=== PATIENT | female | born 1935 | race Two or more races ===

== ENCOUNTER 2016-08-14 07:08 | Day surgery (SDC) | payer MEDICARE, OTHER ==
--- NOTE | 2016-08-08 10:01 | HISTORY AND PHYSICAL E ---
History and Physical NAME: ELFEGO OSUNA : 1935 AGE: 80Y ADMITTED: 08/14/2016 ROOM: CHIEF COMPLAINT: Dysphagia. The patient is known to me. I saw her a year ago on 08/22/2015 where she did have history of cystic benign lesion in her duodenum. She did have MRCP shows no stone. Now she presented with dysphagia. PAST SURGICAL HISTORY: 1. Cholecystectomy. 2. Hysterectomy. 3. Appendectomy. SOCIAL HISTORY: She lives in [place], now she is back in [facility]. REVIEW OF SYSTEMS: CARDIAC: Negative. RESPIRATORY: Negative. ENDOCRINE: Thyroid disorder. GASTROINTESTINAL: History of sessile polyp in the colon resected. PHYSICAL EXAMINATION: VITAL SIGNS: Blood pressure 140/80, pulse 80, respirations 18, temp is 98. HEAD, EYES, EARS, NOSE AND THROAT: Normal. NECK: Supple. LUNGS: Clear. ABDOMEN: Soft. NEUROLOGICAL: Exam negative. CONCLUSIONS: Dysphagia. Upper endoscopy. MEDICATIONS: 1. Mobic. 2. Reclast IV. 3. Meloxicam. 4. Thyroid. PLAN: Upper endoscopy. Try to hold Mobic. Start her on Prilosec pending the upper scope on 08/14/2016. She has recent diagnosis of Paget disease. DICTATING PHYSICIAN: YOSVANY BAI M.D. [id number] PHY#: [id number] ID: [id number] JOB#: [id number] ACCT: [id number] cc:YOSVANY BAI M.D. >
[~2016-08-14 07:08] MED LIST: EPINEPHRINE INJ 1 MG/10 ML DISP.SYRIN ONE; FENTANYL CITRATE INJ/PF 100 MCG/2 ML AMPUL ONE; FLUMAZENIL INJ 0.5 MG/5 ML VIAL IV ONE; GLYCOPYRROLATE INJ 0.4 MG/2 ML VIAL ONE; NALOXONE HCL INJ/PF 0.4 MG/1 ML SDV ONE; ONDANSETRON HCL INJ/PF 4 MG/2 ML SDV ONE
[2016-08-14] MEDS: MIDAZOLAM 2 MG/2 ML INJ ONE ×2 (08:10→08:14)
[2016-08-14 09:34] VITALS: BP 125/58
[2016-08-14 09:59] LABS: ABSOLUTE EOSINOPHILS # (AUTO) 0.1 10^3/uL (0.0-0.6); ABSOLUTE LYMPHOCYTES (AUTO) 1.5 10^3/uL (0.5-4.7); ABSOLUTE MONOCYTES (AUTO) 0.4 10^3/uL (0.1-1.4); ABSOLUTE NEUT (AUTO) 3.3 10^3/uL (1.7-8.2); BASOPHILS % (AUTO) 0.7 % (0-2); EOSINOPHILS % (AUTO) 2.7 % (0-6); HEMATOCRIT 37.5 % (36.0-47.0); HEMOGLOBIN 12.3 g/dL (12.0-15.5); HGB HCT DIFFERENCE -0.6; LYMPHOCYTES % (AUTO) 27.6 % (13-45); MEAN CORPUSCULAR HEMOGLOBIN 29.8 pg (27.0-33.4); MEAN CORPUSCULAR HGB CONC 32.9 g/dL (32.0-36.0); MEAN CORPUSCULAR VOLUME 91 fl (80-97); MONOCYTES % (AUTO) 8.1 % (3-13); RED BLOOD COUNT 4.13 10^6/uL (3.72-5.28); RED CELL DISTRIBUTION WIDTH 12.9 % (11.5-14.0); SEGMENTED NEUTROPHILS % (AUTO) 60.9 % (42-78); WHITE BLOOD COUNT 5.5 10^3/uL (4.0-10.5)
[2016-08-14 10:16] LABS: ALANINE AMINOTRANSFERASE 27 U/L (9-52); ALBUMIN 3.7 g/dL (3.5-5.0); ALKALINE PHOSPHATASE 73 U/L (38-126); ANION GAP 9 (5-19); ASPARTATE AMINO TRANSFERASE 20 U/L (14-36); BILIRUBIN,DIRECT 0.3 mg/dL (0.0-0.4); BILIRUBIN,TOTAL 0.5 mg/dL (0.2-1.3); BLOOD UREA NITROGEN 16 mg/dL (7-20); CALCIUM 9.2 mg/dL (8.4-10.2); CARBON DIOXIDE 27 mmol/L (22-30); CHLORIDE 105 mmol/L (98-107); CREATININE RESULT 0.94 mg/dL (0.52-1.25); GLUCOSE 138 mg/dL (75-110); POTASSIUM 4.5 mmol/L (3.6-5.0); SODIUM 140.5 mmol/L (137-145); TOTAL PROTEIN 6.7 g/dL (6.3-8.2)
[2016-08-14 10:46] LABS: CARCINOEMBRYONIC ANTIGEN 1.4 ng/mL (<3.0)
--- NOTE | 2016-08-14 11:06 | OPERATIVE REPORT E ---
Operative Report NAME: ELFEGO OSUNA : 1935 AGE: 80Y DATE OF SURGERY: 08/14/2016 ROOM: PREOPERATIVE DIAGNOSIS: Abdominal pain, reflux, dysphagia. POSTOPERATIVE DIAGNOSIS: Mild erosive gastritis, small hiatus hernia, benign-looking gastric polyp, 2 mm, in the fundus. Gastritis. A benign cystic lesion in the duodenal bulb/descending duodenum junction. No changes from 2 years previous endoscopy. No evidence of cancer. No ulcers. PROCEDURE: Esophagoscopy, gastroscopy, duodenoscopy. SURGEON: YOSVANY BAI M.D. ANESTHESIA: Versed 3 mg and Fentanyl 50 mcg. TISSUE REMOVED OR ALTERED: Gastric biopsy for H. pylori. PROCEDURE: The baby scope passed under guided vision with no difficulties. Esophagoscopy: Junction at 35 cm, few erosions in the distal esophagus, no varices, no ulcers, 2-cm hiatus hernia, no stricture. Gastroscopy: Benign-looking gastric polyp, 2 mm, nonspecific gastritis, biopsy obtained at gastric antrum. Duodenoscopy: Duodenal bulb shows no ulcers. Descending duodenum junction with duodenal bulb shows a long cystic lesion, most likely fatty cystic lesion, with no bleeding, no malignancy, no changes from previous endoscopy. DISCHARGE PLAN: 1. Hold Mobic. 2. Continue omeprazole. 3. Baseline CBC, CA19-9, CEA and chem profile. 4. The patient is to see us in the office in the next few days. DICTATING PHYSICIAN: YOSVANY BAI M.D. [id number] PHY#: [id number] ID: [id number] JOB#: [id number] ACCT: [id number] cc:YOSVANY BAI M.D. >
--- NOTE | 2016-08-14 11:07 | DISCHARGE SUMMARY E ---
Discharge Summary NAME: ELFEGO OSUNA : 1935 AGE: 80Y ADMITTED: 08/14/2016 DISCHARGED: 08/14/2016 HISTORY: A 80-year-old female with abdominal pain and dysphagia. Upper scope shows no cancer, no ulcers. Cystic lesion in the duodenum with gastritis and hiatus hernia. DISCHARGE PLAN: 1. Baseline lab studies. 2. The patient is to continue omeprazole. 3. Hold Mobic and nonsteroidals. 4. Soft diet. 5. Awaiting biopsy results. 6. Follow-up office visit in the next few days. FINAL DIAGNOSES: 1. Cystic lesion at duodenum. 2. Gastric polyp. 3. Hiatus hernia. DICTATING PHYSICIAN: YOSVANY BAI M.D. [id number] PHY#: [id number] ID: [id number] JOB#: [id number] ACCT: [id number] cc:YOSVANY BAI M.D. >
== END 2016-08-14 10:30 | disposition home or self-care (01) ==
LOC: END 07:08
PROVIDERS: ATTEND Specialist
PROC: 0DB68ZX Excision of Stomach, Via Natural or Artificial Opening Endoscopic, Diagnostic (ICD-10-PCS; principal; 2016-08-14 08:00)
DX: K44.9 Diaphragmatic hernia without obstruction or gangrene (principal); K31.7 Polyp of stomach and duodenum; K29.50 Unspecified chronic gastritis without bleeding; R97.8 Other abnormal tumor markers; K63.89 Other specified diseases of intestine; E07.9 Disorder of thyroid, unspecified; Z79.1 Long term (current) use of non-steroidal anti-inflammatories (NSAID); Z79.899 Other long term (current) drug therapy
CPT/HCPCS: 43239; 36415; 86301; 82378; 85025; 80053; 88342 ×2; 88305 ×2; J2250; J3010; J2405; J0171; J2310; J3490

== ENCOUNTER → 2018-02-24 | Outpatient (CLI) | payer MEDICARE, OTHER | LOC: OD 15:24 | PROVIDERS: ATTEND Surgery | DX: N63.14 Unspecified lump in the right breast, lower inner quadrant (principal) | CPT/HCPCS: 88173 ==

== ENCOUNTER 2018-03-19 07:26 | Day surgery (SDC) | payer MEDICARE, OTHER, MEDICAID ==
[2018-03-13 10:11] LABS: HEMATOCRIT 38.7 % (36.0-47.0); MEAN CORPUSCULAR HEMOGLOBIN 30.7 pg (27.0-33.4); MEAN CORPUSCULAR HGB CONC 33.7 g/dL (32.0-36.0); MEAN CORPUSCULAR VOLUME 91 fl (80-97); PLATELET COUNT 199 10^3/uL (150-450); RED BLOOD COUNT 4.26 10^6/uL (3.72-5.28); RED CELL DISTRIBUTION WIDTH 12.9 % (11.5-14.0); WHITE BLOOD COUNT 6.8 10^3/uL (4.0-10.5)
--- NOTE | 2018-03-13 22:57 | EKG REPORT ---
SEVERITY:- NORMAL ECG - SINUS RHYTHM : Confirmed by: Camilla Coburn MD 13-Mar-2018 22:55:54
[~2018-03-19 07:26] MED LIST changes: +ACETAMINOPHEN 1,000 MG/100 ML RTUPB IV ONE; +ACETAMINOPHEN 325 MG TABLET PO PRN; +CEFAZOLIN 1 GM/D5W RTU 1 GM/50 ML RTUPB IV ONE; +CEFAZOLIN 1 GM/D5W RTU 1 GM/50 ML RTUPB IV PRN; +DEXAMETHASONE SOD PHOSPHATE INJ 4 MG/1 ML VIAL ONE; +EPHEDRINE SULFATE INJ 50 MG/1 ML AMPULE ONE; -EPINEPHRINE INJ 1 MG/10 ML DISP.SYRIN ONE; -FLUMAZENIL INJ 0.5 MG/5 ML VIAL IV ONE; -GLYCOPYRROLATE INJ 0.4 MG/2 ML VIAL ONE; +KETOROLAC TROMETHAMINE 60 MG/2 ML SDV ONE; +LACTATED RINGERS 1000 ML IV PRN; +LIDOCAINE 0.5% INJ-PF (5 MG/ML) 50 ML SDV SUBCUT PRN; +LIDOCAINE 2% INJ-PF (20 MG/ML) 10 ML AMPUL ONE; +LIDOCAINE 4% TRANSPARENT DRESSING 5 GM KIT TP PRN; +MIDAZOLAM 2 MG/2 ML INJ ONE; -NALOXONE HCL INJ/PF 0.4 MG/1 ML SDV ONE; +PROPOFOL INJ 200 MG/20 ML VIAL IV ONE
[2018-03-19] MEDS ORDERED: LIDOCAINE 4% TRANSPARENT DRESSING 5 GM KIT ONE (07:35)
[2018-03-19] MEDS ORDERED: SUCCINYLCHOLINE CHLORIDE INJ 200 MG/10 ML VIAL ONE (08:10)
[2018-03-19] MEDS ORDERED: BUPIVACAINE HCL 0.5%-EPI 1:200000 INJ/PF 30 ML VIAL ONE (09:48)
[2018-03-19] MEDS ORDERED: METHYLENE BLUE 50 MG/10 ML AMPULE ONE (09:48)
[2018-03-19] MEDS ORDERED: OXYCODONE-ACETAMINOPHEN 5-325 MG TABLET PO PRN ×2 (10:30)
[2018-03-19] MEDS ORDERED: DIPHENHYDRAMINE HCL 50 MG/ML VIAL IV PRN (10:30)
[2018-03-19] MEDS ORDERED: FENTANYL CITRATE INJ/PF 100 MCG/2 ML AMPUL IV PRN ×3 (10:30)
[2018-03-19] MEDS ORDERED: MEPERIDINE HCL/PF INJ 25 MG/1 ML DISP.SYRIN IV PRN (10:30)
[2018-03-19] MEDS ORDERED: PROMETHAZINE HCL INJ 25 MG/1 ML VIAL IV PRN ×2 (10:30)
[2018-03-19] MEDS ORDERED: MORPHINE SULFATE 10 MG/ML INJ IV PRN (10:30)
[2018-03-19] MEDS ORDERED: ONDANSETRON HCL INJ/PF 4 MG/2 ML SDV IV PRN (10:30)
--- NOTE | 2018-03-19 11:18 | Operative Report ---
Operative Report DATE OF SURGERY: 03/19/18 PREOPERATIVE DIAGNOSIS: rt breast cancer POSTOPERATIVE DIAGNOSIS: rt breast cancer OPERATION: rt lumpectomy and sentinel node bx SURGEON: KERRY BRAGA 1ST ENTOMOLOGY PROFESSOR: TABITHA LEAHY ANESTHESIA: GA TISSUE REMOVED OR ALTERED: rt breast mass and\. anillary lymph node COMPLICATIONS: none ESTIMATED BLOOD LOSS: 25cc INTRAOPERATIVE FINDINGS: sln = 1261 count invivo PROCEDURE: see dictation
--- NOTE | 2018-03-19 11:26 | Discharge Summary ---
Discharge Summary (SDC) - Discharge Final Diagnosis: right breast cancer Date of Surgery: 03/19/18 Condition: Good Referrals: STEPHON SANCHEZ PA-C [Primary Care Provider] - Discharge Diet: As Tolerated Discharge Activity: Activity As Tolerated, No Lifting Over 10 Pounds, Slowly Increase Activity Report the Following to Your Physician Immediately: Shortness of Breath, Nausea, Vomiting, Increase in Pain, Fever over 101 Degrees, Unusual Bleeding - needs post op visit in 5-7 days.
--- NOTE | 2018-03-19 12:12 | OPERATIVE REPORT E ---
Operative Report NAME: ELFEGO OSUNA : 1935 AGE: 82Y DATE OF SURGERY: 03/19/2018 ROOM: PREOPERATIVE DIAGNOSIS: RIGHT BREAST MASS. POSTOPERATIVE DIAGNOSIS: RIGHT BREAST CANCER. OPERATION: Right breast lumpectomy with sentinel node biopsy. SURGEON: KERRY BRAGA M.D. SOCIAL SCIENCES LECTURER: Daphne Gomez PA-C for wound retraction and wound closure. INDICATIONS FOR PROCEDURE: This is an 82-year-old female who presented with a right upper outer quadrant breast mass. She underwent a fine needle aspiration in the office which showed atypical cells but the mass was firm and irregular and she declined core biopsy. She was therefore brought to the operating room for this procedure. PROCEDURE: The patient was brought to the operating room awake, alert, in stable condition, placed on the operating table, in supine position and given general anesthesia. The right breast was prepped and draped in usual sterile manner for the procedure. Prior to surgery she underwent an injection of technetium for sentinel node biopsy by radiology. Using the needle probe before we started, I identified a high count in her right axilla as well as over the tumor mass. We began with the mass in her right upper outer quadrant where a curvilinear incision was made at the 10 o'clock position about 6 cm long and we raised superior and inferior skin flaps and then identified the mass. It was placed on traction and dissected from the surrounding fibrofatty and breast tissue with Bovie cautery. Once it was completely excised, with Bovie cautery, we sent it down to pathology which proved it to be carcinoma. Once this was completed, we obtained hemostasis with Bovie cautery and then proceeded with the Stephenson node biopsy. A curvilinear incision was made in the right axillary lobe with a high count. Using the needle probe the dissection was carried down through subcutaneous tissue with Bovie cautery. With gentle traction and dissection we were able to tease the subcutaneous tissue away from the overlying skin to get into the deep axillary nodes. We eventually identified a blue node that was stained with methylene blue that was given to her during the prep portion of the procedure. The blue node had a ex-vivo count of 1261. I was comfortable that was the sentinel node. I sent that down as the sentinel node after dissecting from the surrounding tissue and controlling the small lymphatics with hemoclips. Then using the needle probe, we identified another section of fat in the upper portion of the left axilla still outside the clavipectoral fascia. It had a high count also in the 1000s and I therefore dissected it free from the surrounding tissue, although it did not have blue dye within it; I sent that down as a secondary lymph node. Once this was completed, we irrigated the axilla as well as the lumpectomy site with sterile water and suctioned dry. We then closed the deep subcutaneous tissue with interrupted 3-0 Vicryl suture and the skin was closed with intracuticular 4-0 Biosyn. Steri-Strips and a sterile dressing were applied which completed the procedure. Estimated blood loss was less than 25 mL. Sponge and needle counts were all correct x2. Patient was transferred to recovery in stable condition. DICTATING PHYSICIAN: KERRY BRAGA M.D. [id number] PHY#: [id number] ID: [id number] JOB#: [id number] ACCT: [id number] cc:KERRY BRAGA M.D. >
--- NOTE | 2018-03-19 12:37 | RADIOLOGY REPORT (SQ) ---
EXAM DESCRIPTION: NM LYMPHATICS/LYMPH GLANDS COMPLETED DATE/TIME: 03/19/2018 10:25 am REASON FOR STUDY: BREAST CA N63.11 UNSPECIFIED LUMP IN THE RIGHT BREAST, UPPER OUTER ETELVINA Z79.01 LO NG TERM (CURRENT) USE OF ANTICOAGULANTS COMPARISON: No previous RADIONUCLIDE AND DOSE: 568 microcuries TC-99m tilmanocept - [employer]. The route of agent administration: Subcutaneous in the skin. TECHNIQUE: The skin of the right breast was prepped in sterile fashion. The radiopharmaceutical was administered in equally divided doses in the periareolar breast. LIMITATIONS: None. FINDINGS: Images demonstrate activity at the injection site. There is migration of activity towards the right axilla. IMPRESSION: ADMINISTRATION OF RADIOPHARMACEUTICAL FOR SENTINEL LYMPH NODE EVALUATION. TECHNICAL DOCUMENTATION: JOB ID: [id number] [employer]- All Rights Reserved Reading location - IP/workstation name: [email or web address]
[2018-03-19 14:00] VITALS: BP 141/75
== END 2018-03-19 13:45 | disposition home or self-care (01) ==
LOC: OROUT 07:26
PROVIDERS: ATTEND Surgery
DX: C50.811 Malignant neoplasm of overlapping sites of right female breast (principal); E03.9 Hypothyroidism, unspecified; E78.00 Pure hypercholesterolemia, unspecified; K21.9 Gastro-esophageal reflux disease without esophagitis; E55.9 Vitamin D deficiency, unspecified; M06.9 Rheumatoid arthritis, unspecified; Z79.899 Other long term (current) drug therapy; Z01.818 Encounter for other preprocedural examination
CPT/HCPCS: 93005; 36415; 85027; 88342 ×2; 88305 ×2; 88307 ×2; 88331 ×2; 78195; 93010; 19302; A9520; J2250; J0690; J1100; J3490 ×3; J1885; J3010; J0330; J2405; J2704; J0131; Q9968; 1610

== ENCOUNTER 2018-05-28 05:34 | Day surgery (SDC) | payer MEDICARE, OTHER ==
[~2018-05-28 05:34] MED LIST changes: -ACETAMINOPHEN 1,000 MG/100 ML RTUPB IV ONE; -ACETAMINOPHEN 325 MG TABLET PO PRN; -DEXAMETHASONE SOD PHOSPHATE INJ 4 MG/1 ML VIAL ONE; -EPHEDRINE SULFATE INJ 50 MG/1 ML AMPULE ONE; -FENTANYL CITRATE INJ/PF 100 MCG/2 ML AMPUL ONE; -KETOROLAC TROMETHAMINE 60 MG/2 ML SDV ONE; -LIDOCAINE 2% INJ-PF (20 MG/ML) 10 ML AMPUL ONE; -LIDOCAINE 4% TRANSPARENT DRESSING 5 GM KIT TP PRN; -MIDAZOLAM 2 MG/2 ML INJ ONE; -ONDANSETRON HCL INJ/PF 4 MG/2 ML SDV ONE; -PROPOFOL INJ 200 MG/20 ML VIAL IV ONE
[2018-05-28] MEDS ORDERED: HYDROMORPHONE HCL INJ/PF 2 MG/ML AMPULE ONE (07:01)
[2018-05-28] MEDS ORDERED: FENTANYL CITRATE INJ/PF 100 MCG/2 ML AMPUL ONE (07:01)
[2018-05-28] MEDS ORDERED: MIDAZOLAM 2 MG/2 ML INJ ONE (07:01)
[2018-05-28] MEDS ORDERED: EPHEDRINE SULFATE INJ 50 MG/1 ML AMPULE ONE (07:01)
[2018-05-28] MEDS ORDERED: PROPOFOL INJ 200 MG/20 ML VIAL IV ONE (07:02)
[2018-05-28] MEDS ORDERED: ACETAMINOPHEN 1,000 MG/100 ML RTUPB IV ONE (07:02)
[2018-05-28] MEDS ORDERED: LIDOCAINE 2% INJ (20 MG/ML) 20 ML MDV ONE (07:03)
[2018-05-28] MEDS ORDERED: FAMOTIDINE INJ/PF 20 MG/2 ML SDV IV ONE (07:06)
[2018-05-28] MEDS ORDERED: METOCLOPRAMIDE HCL INJ/PF 10 MG/2 ML SDV ONE (07:08)
[2018-05-28] MEDS ORDERED: BUPIVACAINE HCL 0.25% /EPINEPHRINE INJ/PF 30 ML SDV ONE (07:20)
[2018-05-28] MEDS ORDERED: FENTANYL CITRATE INJ/PF 100 MCG/2 ML AMPUL IV PRN ×3 (08:08)
[2018-05-28] MEDS ORDERED: MORPHINE SULFATE 10 MG/ML INJ IV PRN (08:08)
[2018-05-28] MEDS ORDERED: MEPERIDINE HCL/PF INJ 25 MG/1 ML DISP.SYRIN IV PRN (08:08)
[2018-05-28] MEDS ORDERED: ONDANSETRON HCL INJ/PF 4 MG/2 ML SDV IV PRN (08:08)
[2018-05-28] MEDS ORDERED: DIPHENHYDRAMINE HCL 50 MG/ML VIAL IV PRN (08:08)
--- NOTE | 2018-05-28 08:46 | Operative Report ---
Nonrecallable Operative Report DATE OF SURGERY: 05/28/18 PREOPERATIVE DIAGNOSIS: breast cancer POSTOPERATIVE DIAGNOSIS: breast cancer OPERATION: reexcision breast mass rt breast SURGEON: KERRY BRAGA ANESTHESIA: GA TISSUE REMOVED OR ALTERED: right breast mass COMPLICATIONS: none ESTIMATED BLOOD LOSS: 50cc. INTRAOPERATIVE FINDINGS: see dictation PROCEDURE: see dictation
--- NOTE | 2018-05-28 08:48 | Discharge Summary ---
Discharge Summary (SDC) - Discharge Final Diagnosis: right breast cancer Date of Surgery: 05/28/18 Discharge Date: 05/28/18 Condition: Good Treatment or Instructions: keep the castillo wrap on for 48 hrs , then ok to removed to shower and replace after shower Referrals: STEPHON SANCHEZ PA-C [Primary Care Provider] - Discharge Diet: As Tolerated Discharge Activity: Activity As Tolerated, No Lifting Over 10 Pounds Report the Following to Your Physician Immediately: Shortness of Breath, Nausea, Vomiting, Increase in Pain, Fever over 101 Degrees - needs f/u appoint with me in 7-10 days, Redness
[2018-05-28] MEDS ORDERED: OXYCODONE-ACETAMINOPHEN 5-325 MG TABLET ONE (10:08)
[2018-05-28 11:02] VITALS: BP 133/76
--- NOTE | 2018-05-28 11:34 | OPERATIVE REPORT E ---
Operative Report NAME: ELFEGO OSUNA : 1935 AGE: 82Y DATE OF SURGERY: 05/28/2018 ROOM: PREOPERATIVE DIAGNOSIS: Ductal carcinoma in situ, right breast. POSTOPERATIVE DIAGNOSIS: Ductal carcinoma in situ, right breast. OPERATIVE PROCEDURE: Re-excision of right breast mass. SURGEON: KERRY BRAGA M.D. INDICATIONS FOR PROCEDURE: This is an 82-year-old who had previous right upper outer quadrant breast mass excised for what proved to be ductal carcinoma in situ; however, on final pathology there were positive margins with multifocal disease. The patient understands that there is multifocal disease within the breast and she requests to have one more attempt at complete excision. Therefore, she was brought to the operating room for this procedure. PROCEDURE: The patient was brought to the operating room awake, alert, in stable condition, placed on the operating table in the supine position induced under general anesthesia, intubated. The right breast was prepped and draped in the usual sterile manner for the procedure. A curvilinear incision was made in the upper outer quadrant of the right breast in the previous scar. Dissection carried down to subcutaneous tissue with Bovie cautery. Superior and inferior flaps were raised, keeping away from the previous biopsy site and once we raised the superior and inferior skin flaps we continued our dissection down towards the chest wall superiorly with the Bovie cautery, circumferentially coming around the previous biopsy site cavity. We remained out of the cavity the entire time, excising breast tissues laterally and then inferiorly underneath the nipple areolar complex, all the way down to the chest wall to identify the pectoralis major muscle. The mass was then dissected up off the muscle with Bovie cautery, again staying out of the previous biopsy cavity. The mass was removed. Hemostasis was then obtained with Bovie cautery. When good hemostasis was obtained the superficial subcutaneous tissue was closed with interrupted 4-0 Vicryl and the skin was closed with intracuticular 4-0 Biosyn. Steri-Strips completed the procedure. A sterile Soham wrap was placed around the chest for compression and the patient was transferred to recovery in stable condition, no complications. DICTATING PHYSICIAN: KERRY BRAGA M.D. [id number] Y#: [id number] ID: [id number] JOB#: [id number] ACCT: [id number] cc:KERRY BRAGA M.D. >
[2018-05-28] MEDS ORDERED: ROCURONIUM BROMIDE INJ 50 MG/5 ML VIAL IV ONE (13:57)
[2018-05-28] MEDS ORDERED: ONDANSETRON HCL INJ/PF 4 MG/2 ML SDV ONE (13:57)
[2018-05-28] MEDS ORDERED: DEXAMETHASONE SOD PHOSPHATE INJ 4 MG/1 ML VIAL ONE (13:57)
[2018-05-28] MEDS ORDERED: PHENYLEPHRINE HCL INJ/PF 10 MG/1 ML SDV ONE (13:57)
[2018-05-28] MEDS ORDERED: SUCCINYLCHOLINE CHLORIDE INJ 200 MG/10 ML VIAL ONE (13:57)
[2018-05-28] MEDS ORDERED: GLYCOPYRROLATE 1 MG/5 ML SYRINGE ONE (13:57)
== END 2018-05-28 10:55 | disposition home or self-care (01) ==
LOC: OROUT 05:34
PROVIDERS: ATTEND Surgery
DX: D05.11 Intraductal carcinoma in situ of right breast (principal); E03.9 Hypothyroidism, unspecified; E78.00 Pure hypercholesterolemia, unspecified; E55.9 Vitamin D deficiency, unspecified; K21.9 Gastro-esophageal reflux disease without esophagitis; Z79.899 Other long term (current) drug therapy; Z01.818 Encounter for other preprocedural examination
CPT/HCPCS: 88342 ×2; 88341 ×2; 88307 ×2; 19120; J2250; J3490 ×3; J0690; J1100; J2765; A9270; J1170; J2370; J0330; J2405; J2704; S0028; J0131; 400; J3010

== ENCOUNTER 2018-06-18 07:51 | Day surgery (SDC) | payer MEDICARE, OTHER ==
[~2018-06-18 07:51] MED LIST changes: -LACTATED RINGERS 1000 ML IV PRN; -LIDOCAINE 0.5% INJ-PF (5 MG/ML) 50 ML SDV SUBCUT PRN
[2018-06-18] MEDS ORDERED: SUCCINYLCHOLINE CHLORIDE INJ 200 MG/10 ML VIAL ONE (10:08)
[2018-06-18] MEDS ORDERED: BUPIVACAINE HCL 0.5%-EPI 1:200000 INJ/PF 30 ML VIAL ONE ×2 (10:21→10:44)
[2018-06-18 10:24] LABS: ABSOLUTE BASOPHILS # (AUTO) 0.1 10^3/uL (0.0-0.2); ABSOLUTE EOSINOPHILS # (AUTO) 0.2 10^3/uL (0.0-0.6); ABSOLUTE MONOCYTES (AUTO) 0.6 10^3/uL (0.1-1.4); ABSOLUTE NEUT (AUTO) 4.6 10^3/uL (1.7-8.2); BASOPHILS % (AUTO) 0.8 % (0-2); EOSINOPHILS % (AUTO) 2.9 % (0-6); HEMATOCRIT 37.4 % (36.0-47.0); HEMOGLOBIN 12.4 g/dL (12.0-15.5); LYMPHOCYTES % (AUTO) 26.7 % (13-45); MEAN CORPUSCULAR HEMOGLOBIN 30.2 pg (27.0-33.4); MEAN CORPUSCULAR HGB CONC 33.1 g/dL (32.0-36.0); MEAN CORPUSCULAR VOLUME 91 fl (80-97); MONOCYTES % (AUTO) 8.2 % (3-13); PLATELET COUNT 167 10^3/uL (150-450); RED BLOOD COUNT 4.09 10^6/uL (3.72-5.28); RED CELL DISTRIBUTION WIDTH 12.7 % (11.5-14.0); SEGMENTED NEUTROPHILS % (AUTO) 61.4 % (42-78); TOTAL CELLS COUNTED % (AUTO) 100 %; WHITE BLOOD COUNT 7.5 10^3/uL (4.0-10.5)
[2018-06-18] MEDS ORDERED: PROPOFOL INJ 200 MG/20 ML VIAL IV ONE (10:29)
[2018-06-18] MEDS ORDERED: MIDAZOLAM 2 MG/2 ML INJ ONE (10:29)
[2018-06-18] MEDS ORDERED: FENTANYL CITRATE INJ/PF 250 MCG/5 ML AMPULE ONE (10:29)
[2018-06-18] MEDS ORDERED: DEXAMETHASONE SOD PHOSPHATE INJ 4 MG/1 ML VIAL ONE (10:30)
[2018-06-18] MEDS ORDERED: ONDANSETRON HCL INJ/PF 4 MG/2 ML SDV ONE (10:30)
[2018-06-18 10:50] LABS: ANION GAP 8 (5-19); BLOOD UREA NITROGEN 15 mg/dL (7-20); CALCIUM 9.8 mg/dL (8.4-10.2); CARBON DIOXIDE 28 mmol/L (22-30); CHLORIDE 107 mmol/L (98-107); GLUCOSE 94 mg/dL (75-110); POTASSIUM 4.6 mmol/L (3.6-5.0); SODIUM 142.8 mmol/L (137-145)
[2018-06-18] MEDS ORDERED: PROMETHAZINE HCL INJ 25 MG/1 ML VIAL IV PRN (11:31)
[2018-06-18] MEDS ORDERED: MEPERIDINE HCL/PF INJ 25 MG/1 ML DISP.SYRIN IV PRN (11:31)
[2018-06-18] MEDS ORDERED: DIPHENHYDRAMINE HCL 50 MG/ML VIAL IV PRN (11:31)
[2018-06-18] MEDS ORDERED: FENTANYL CITRATE INJ/PF 100 MCG/2 ML AMPUL IV PRN ×2 (11:31)
[2018-06-18] MEDS ORDERED: MICROFIBRILLAR COLLAGEN 1 GM PACK ONE (11:46)
[2018-06-18] MEDS ORDERED: ONDANSETRON HCL INJ/PF 4 MG/2 ML SDV IV PRN (12:31)
[2018-06-18] MEDS ORDERED: DEXTROSE 5%-LACTATED RINGERS 1,000 ML IV PRN (12:31)
[2018-06-18] MEDS ORDERED: TEMAZEPAM 7.5 MG CAPSULE PO PRN (12:31)
[2018-06-18] MEDS ORDERED: MORPHINE SULFATE 10 MG/ML INJ IV PRN (12:31)
[2018-06-18] MEDS ORDERED: KETOROLAC TROMETHAMINE INJ/PF 30 MG/1 ML SDV IV PRN (12:35)
--- NOTE | 2018-06-18 12:38 | Operative Report ---
Nonrecallable Operative Report DATE OF SURGERY: 06/18/18 PREOPERATIVE DIAGNOSIS: right breast cancer POSTOPERATIVE DIAGNOSIS: right breast cancer OPERATION: right simple mastectomy SURGEON: KERRY BRAGA 1ST SCHOOL ADJUSTMENT COUNSELOR: TABITHA LEAHY ANESTHESIA: GA TISSUE REMOVED OR ALTERED: right breast COMPLICATIONS: none ESTIMATED BLOOD LOSS: 50cc INTRAOPERATIVE FINDINGS: see dictation PROCEDURE: see dictation
--- NOTE | 2018-06-18 13:34 | OPERATIVE REPORT E ---
Operative Report NAME: ELFEGO OSUNA : 1935 AGE: 82Y DATE OF SURGERY: 06/18/2018 ROOM: PREOPERATIVE DIAGNOSIS: Multifocal ductal carcinoma in situ, right breast. POSTOPERATIVE DIAGNOSIS: Multifocal ductal carcinoma in situ, right breast. OPERATIVE PROCEDURE: Right simple mastectomy. SURGEON: KERRY BRAGA M.D. UNIT COORDINATOR: JAMI Bernstein for wound retraction, assist in surgery, and closure. ANESTHESIA: General. INDICATIONS FOR PROCEDURE: This is an 82-year-old female who has had previous microcalcifications biopsied in the right breast which proved to be ductal carcinoma in situ without invasive cancer. An initial operative lumpectomy resulted in positive margins. She was then taken back for a second attempt at lumpectomy which noted that she had positive margins again. In consultation with her and Pathology, it is felt that this is multifocal disease, and, therefore, she was scheduled for this simple mastectomy. PROCEDURE: The patient was brought to the operating room awake, alert, in stable condition, placed on the operating table in supine position, induced under general anesthesia, intubated. The right arm and breast were prepped and draped in the usual sterile manner for the procedure. After appropriate time out and site verification, an elliptical incision was made from the sternal border to the anterior edge of the latissimus dorsi muscle. Using skin hooks we then raised superior and inferior flaps with Bovie cautery. Hemostasis was obtained with Bovie cautery. Once the superior and inferior flaps were raised the breast was dissected off the pectoralis major muscle from medial to lateral position using Bovie cautery to take the breast off the fascia of the pectoralis muscle. In the right upper quadrant, the previous biopsy capsule was entered and drained of its fluid and then incorporated into the mastectomy. Once the breast was removed hemostasis of the chest wall was obtained with Bovie cautery. After we had good hemostasis we closed the subdermal layer with interrupted placed 3-0 Vicryl sutures, placed 2 José Miguel drains, one under the inferior flap and one under the superior flap, brought them out through a separate stab wound on the right chest wall, and then closed the skin with intracuticular 4-0 Biosyn. Steri-Strips were then applied to complete the procedure. Estimated blood loss was 50 mL. Sponge and needle counts were correct x2. The patient was awakened in the operating room, extubated, and transferred to recovery in stable condition, no complications. DICTATING PHYSICIAN: KERRY BRAGA M.D. [id number] PHY#: [id number] ID: [id number] JOB#: [id number] ACCT: [id number] cc:KERRY BRAGA M.D. >
[2018-06-18] MEDS: ACETAMINOPHEN 325 MG TABLET PO PRN ×2 (14:36→22:09)
--- NOTE | 2018-06-19 08:42 | PDOC PROGRESS REPORT ---
Subjective Progress Note for:: 06/19/18 Subjective:: doing well post op, no complaints Reason For Visit: N63.11 UNSPECIFIED LUMP IN THE RIGHT BREAST, UPPER Physical Exam Vital Signs: Temp Pulse Resp BP Pulse Ox 98.1 F 72 16 127/48 H 96 06/18/18 18:00 06/18/18 18:00 06/18/18 18:00 06/18/18 18:00 06/18/18 18:00 Intake & Output 06/18/18 06/19/18 06/20/18 06:59 06:59 06:59 Intake Total 2567 Output Total 1235 Balance 1332 Weight 66 kg 74.3 kg General appearance: PRESENT: no acute distress Eye exam: PRESENT: EOMI Mouth exam: PRESENT: moist Neck exam: PRESENT: full ROM Respiratory exam: PRESENT: clear to auscultation brent Cardiovascular exam: PRESENT: RRR Pulses: PRESENT: normal radial pulses, normal femoral pulses Vascular exam: PRESENT: normal capillary refill GI/Abdominal exam: PRESENT: soft Rectal exam: PRESENT: deferred Extremities exam: PRESENT: full ROM Musculoskeletal exam: PRESENT: full ROM Neurological exam: PRESENT: alert, awake, oriented to person, oriented to place Psychiatric exam: PRESENT: appropriate affect Skin exam: PRESENT: dry Results Laboratory Results: 06/18/18 10:09 06/18/18 10:09 06/18/18 06/18/18 10:09 10:09 WBC 7.5 RBC 4.09 Hgb 12.4 Hct 37.4 MCV 91 MCH 30.2 MCHC 33.1 RDW 12.7 Plt Count 167 Seg Neutrophils % 61.4 Lymphocytes % 26.7 Monocytes % 8.2 Eosinophils % 2.9 Basophils % 0.8 Absolute Neutrophils 4.6 Absolute Lymphocytes 2.0 Absolute Monocytes 0.6 Absolute Eosinophils 0.2 Absolute Basophils 0.1 Sodium 142.8 Potassium 4.6 Chloride 107 Carbon Dioxide 28 Anion Gap 8 BUN 15 Creatinine 0.97 Est GFR ( Amer) > 60 Est GFR (Non-Af Amer) 55 L Glucose 94 Calcium 9.8 Assessment & Plan - Plan Summary Plan Summary: doing well, s/p right mastectomy wound clean dry, will dc home today
[2018-06-19] MEDS: ACETAMINOPHEN 325 MG TABLET PO PRN (08:59)
[2018-06-19 10:25] VITALS: BP 127/48
--- NOTE | 2018-06-19 10:59 | DISCHARGE SUMMARY E ---
Discharge Summary NAME: ELFEGO OSUNA : 1935 AGE: 82Y ADMITTED: 06/18/2018 DISCHARGED: DISPOSITION: Patient being discharged status post right simple mastectomy. REASON FOR HOSPITALIZATION/HOSPITAL COURSE: This is an 82-year-old female who was admitted yesterday for an elective right simple mastectomy for ductal carcinoma in situ. She tolerated the procedure well. On postoperative day 1 was reexamined and noted not to have any significant bleeding and no surgical complications at this point. She is tolerating a regular diet. Her pain is well controlled on only Tylenol. She is now ready for discharge home. DISCHARGE MEDICATIONS: None. FOLLOWUP: She will follow up with me 1 week after discharge. DISCHARGE INSTRUCTIONS: She has been given instructions on how to care for the wound and Joshua-Vieyra drains. FINAL DIAGNOSIS: Right ductal carcinoma in situ. DICTATING PHYSICIAN: KERRY BRAGA M.D. [id number] PHY#: [id number] ID: [id number] JOB#: [id number] ACCT: [id number] cc:KERRY BRAGA M.D. >
== END 2018-06-19 11:10 | disposition home or self-care (01) ==
LOC: OROUT 07:51 → 4W 14:06 → OROUT 06-19 11:10
PROVIDERS: ATTEND Surgery
DX: D05.11 Intraductal carcinoma in situ of right breast (principal); N63.11 Unspecified lump in the right breast, upper outer quadrant; Z79.899 Other long term (current) drug therapy; E03.9 Hypothyroidism, unspecified; E78.00 Pure hypercholesterolemia, unspecified; K21.9 Gastro-esophageal reflux disease without esophagitis; E55.9 Vitamin D deficiency, unspecified
CPT/HCPCS: 36415; 85025; 80048; 88307 ×2; 19303; A9270 ×2; J2250; J3490 ×2; J0690; J1100; J3010; J0330; J2405; J2704; 400; J7121

== ENCOUNTER 2019-03-10 09:04 | Day surgery (SDC) | payer MEDICARE, OTHER ==
[2019-03-10] MEDS ORDERED: PROPOFOL INJ 200 MG/20 ML VIAL IV ONE (12:21)
[2019-03-10 13:50] VITALS: BP 153/75
--- NOTE | 2019-03-10 16:41 | Operative Report ---
Operative Report DATE OF SURGERY: 03/10/19 Operative Report: The risks benefits and alternatives of the procedure explained to the patient in detail and informed consent is obtained .A GIF Olympus video scope was inserted into the patient's mouth and hypopharynx, the esophagus is identified intubated and insufflated ,the scope was then advanced through the esophagus stomach and duodenum, retroflexion maneuver is done, the esophagus stomach and first and second portions of the duodenum examined PREOPERATIVE DIAGNOSIS: Dysphagia POSTOPERATIVE DIAGNOSIS: Hiatal hernia. Schatzki's ring versus distal esophageal stricture status post biopsy. Gastritis status post biopsy rule out Helicobacter pylori. May be a component of eosinophilic esophagitis OPERATION: EGD with biopsy SURGEON: JOEY TAYLOR ANESTHESIA: LMAC TISSUE REMOVED OR ALTERED: As noted above COMPLICATIONS: None. ESTIMATED BLOOD LOSS: None. INTRAOPERATIVE FINDINGS: As noted above. PROCEDURE: Patient tolerated the procedure well. No immediate postprocedure complications are noted. Patient is discharged in good condition. Discharge date 03/10/2019. Discharge diet: Regular. Discharge activity: Regular. 2 to 3-week follow-up to discuss findings. Patient is instructed to call the office or proceed to the emergency room should there be any further problems or questions.
--- NOTE | 2019-03-10 16:46 | Progress Note ---
Provider Note Provider Note: This is in regards to previous dictation on operative procedure done today. Left out of finding noted in the duodenum. There is a large pedunculated polyp that is noted biopsies obtained. It appears to originate in the second portion of the duodenum. Will await biopsies on that.
== END 2019-03-10 13:15 | disposition home or self-care (01) ==
LOC: OROUT 09:04
PROVIDERS: ATTEND Internal Medicine Gastroenterology
DX: K44.9 Diaphragmatic hernia without obstruction or gangrene (principal); K22.2 Esophageal obstruction; K29.50 Unspecified chronic gastritis without bleeding; K29.80 Duodenitis without bleeding; E78.00 Pure hypercholesterolemia, unspecified
CPT/HCPCS: 43239; 88305 ×2; 00731; J2704; 731

== ENCOUNTER → 2019-04-07 | Day surgery (SDC) | payer MEDICARE, OTHER ==
[~2019-04-07] MED LIST changes: -CEFAZOLIN 1 GM/D5W RTU 1 GM/50 ML RTUPB IV ONE; -CEFAZOLIN 1 GM/D5W RTU 1 GM/50 ML RTUPB IV PRN; +LIDOCAINE 2% JELLY 30 ML TUBE ONE; +LIDOCAINE 2% JELLY 5 ML TUBE ONE
== END ==
LOC: END 10:09
PROVIDERS: ATTEND Internal Medicine Gastroenterology
DX: R13.10 Dysphagia, unspecified (principal)
CPT/HCPCS: 91010

== ENCOUNTER → 2019-04-19 | Outpatient (CLI) | payer MEDICARE, OTHER ==
--- NOTE | 2019-04-19 11:36 | RADIOLOGY REPORT (SQ) ---
EXAM DESCRIPTION: BARIUM SWALLOW ESOPHAGUS COMPLETED DATE/TIME: 04/19/2019 10:07 am REASON FOR STUDY: GERD (K21.9) K21.9 GASTRO-ESOPHAGEAL REFLUX DISEASE WITHOUT ESOPHAGITIS COMPARISON: Barium swallow upper GI 12/07/2013 TECHNIQUE: Under fluoroscopic guidance, patient ingested effervescent granules followed by thick and thin barium. Fluoroscopic spot images and routine radiographic images acquired and stored on PACS. 12 MM BARIUM TABLET GIVEN: Yes. No significant delay in passage. LIMITATIONS: None. FLUOROSCOPY TIME: FLUORO TIME: 1.1 minutes of fluoroscopy was used. 9 images saved to PACS. FINDINGS: NEUROMUSCULAR COORDINATION OF SWALLOW: Normal. No aspiration. ESOPHAGEAL MOTILITY: Normal peristalsis. No esophageal spasm. ESOPHAGEAL MUCOSA: Normal mucosa without masses or ulceration. GASTRO-ESOPHAGEAL JUNCTION: Large hiatal hernia with moderate free-flowing gastroesophageal reflux. Schatzki's ring formation is nonobstructive. 12 mm barium tablet passed through the GE junction with out delay. NON-GI TRACT STRUCTURES: No significant finding. OTHER: No other significant finding. IMPRESSION: LARGE HIATAL HERNIA WITH MODERATE FREE-FLOWING GASTROESOPHAGEAL REFLUX. COMMENT: Quality ID [id number]: Final reports for procedures using fluoroscopy that document radiation exp osure indices, or exposure time and number of fluorographic images (if radiation exposure indices are not available) TECHNICAL DOCUMENTATION: JOB ID: [id number] 2010 [employer]- All Rights Reserved Reading location - IP/workstation name: [email or web address] [id number]
== END ==
LOC: RAD 08:59
PROVIDERS: ATTEND Surgery
DX: K21.9 Gastro-esophageal reflux disease without esophagitis (principal); K44.9 Diaphragmatic hernia without obstruction or gangrene
CPT/HCPCS: 74220

== ENCOUNTER → 2019-05-04 | Outpatient (CLI) | payer MEDICARE, OTHER ==
[2019-05-04 10:22] VITALS: BP 141/74
[2019-05-04 10:51] LABS: ABSOLUTE EOSINOPHILS # (AUTO) 0.1 10^3/uL (0.0-0.6); ABSOLUTE LYMPHOCYTES (AUTO) 2.1 10^3/uL (0.5-4.7); ABSOLUTE MONOCYTES (AUTO) 0.8 10^3/uL (0.1-1.4); ABSOLUTE NEUT (AUTO) 5.8 10^3/uL (1.7-8.2); BASOPHILS % (AUTO) 0.6 % (0-2); EOSINOPHILS % (AUTO) 1.3 % (0-6); HEMOGLOBIN 13.2 g/dL (12.0-15.5); LYMPHOCYTES % (AUTO) 24.3 % (13-45); MEAN CORPUSCULAR HGB CONC 33.8 g/dL (32.0-36.0); MEAN CORPUSCULAR VOLUME 92 fl (80-97); MONOCYTES % (AUTO) 8.6 % (3-13); PLATELET COUNT 184 10^3/uL (150-450); RED BLOOD COUNT 4.25 10^6/uL (3.72-5.28); RED CELL DISTRIBUTION WIDTH 12.9 % (11.5-14.0); SEGMENTED NEUTROPHILS % (AUTO) 65.2 % (42-78); TOTAL CELLS COUNTED % (AUTO) 100 %; WHITE BLOOD COUNT 8.8 10^3/uL (4.0-10.5)
[2019-05-04 11:11] LABS: ANION GAP 7 (5-19); BLOOD UREA NITROGEN 22 mg/dL (7-20); CALCIUM 10.2 mg/dL (8.4-10.2); CARBON DIOXIDE 32 mmol/L (22-30); CHLORIDE 100 mmol/L (98-107); GLUCOSE 88 mg/dL (75-110); POTASSIUM 4.5 mmol/L (3.6-5.0)
--- NOTE | 2019-05-04 13:02 | RADIOLOGY REPORT (SQ) ---
EXAM DESCRIPTION: CHEST PA/LATERAL COMPLETED DATE/TIME: 05/04/2019 11:00 am REASON FOR STUDY: PRE-OP COMPARISON: None. EXAM PARAMETERS: NUMBER OF VIEWS: two views TECHNIQUE: Digital Frontal and Lateral radiographic views of the chest acquired. RADIATION DOSE: NA LIMITATIONS: none FINDINGS: LUNGS AND PLEURA: No opacities, masses or pneumothorax. No pleural effusion. MEDIASTINUM AND HILAR STRUCTURES: No masses or contour abnormalities. HEART AND VASCULAR STRUCTURES: Heart normal size. No evidence for failure. BONES: No acute findings. HARDWARE: None in the chest. OTHER: No other significant finding. IMPRESSION: NO SIGNIFICANT RADIOGRAPHIC FINDING IN THE CHEST. TECHNICAL DOCUMENTATION: JOB ID: [id number] 2010 [employer]- All Rights Reserved Reading location - IP/workstation name: [email or web address]
--- NOTE | 2019-05-04 14:34 | EKG REPORT ---
SEVERITY:- BORDERLINE ECG - SINUS RHYTHM PROBABLE LEFT ATRIAL ABNORMALITY : Confirmed by: Camilla Coburn MD 04-May-2019 14:33:14
== END ==
LOC: OD 09:42 → EDSTATUS 05-13 07:30
PROVIDERS: ATTEND Specialist
DX: Z01.810 Encounter for preprocedural cardiovascular examination (principal); Z01.811 Encounter for preprocedural respiratory examination; Z01.812 Encounter for preprocedural laboratory examination; Z01.818 Encounter for other preprocedural examination
CPT/HCPCS: 36415; 71046; 80048; 85025; 93005; 93010

== ENCOUNTER → 2019-08-31 | Outpatient (CLI) | payer MEDICARE, OTHER ==
--- NOTE | 2019-08-31 21:00 | XCELERA REPORT ---
[address] [address] Transthoracic Echocardiogram Report Name: ELFEGO OSUNA Age: 83 yrs Gender: Female : 1935 Patient Status: Outpatient Patient Location: Study Date: 08/31/2019 09:10 AM History: Cardiac murmur Height: 64 in Weight: 162 lb BSA: 1.8 m2 Procedure: A complete two-dimensional transthoracic echocardiogram was performed (2D, M-mode, spectral and color flow Doppler). Reason For Study: CARDIAC MURMUR Ordering Physician: STEPHON SANCHEZ Performed By: Shirin Maldonado Interpretation Summary Left ventricular systolic function is normal. The Ejection Fraction estimate is 55-60% The right ventricle is normal in size and function. There is a trace amount of mitral regurgitation There is no aortic valve stenosis A bicuspid aortic valve cannot be excluded. There is a trace amount of tricuspid regurgitation There is mild pulmonary hypertension by echo MMode/2D Measurements & Calculations RVDd: 2.7 cm LVIDd: 3.4 cm FS: 33.1 % Ao root diam: 2.3 cm IVSd: 1.2 cm LVIDs: 2.3 cm EDV(Teich): 48.8 ml Ao root area: 4.0 cm2 LVPWd: 1.0 cm ESV(Teich): 18.1 ml EF(Teich): 62.8 % Doppler Measurements & Calculations MV E max sumeet: MV dec slope: Ao V2 max: LV V1 max P.4 cm/sec 460.3 cm/sec2 179.0 cm/sec 12.6 mmHg MV A max sumeet: MV dec time: Ao max PG: LV V1 max: 100.5 cm/sec 0.22 sec 12.8 mmHg 177.6 cm/sec MV E/A: 1.0 PA V2 max: PI end-d sumeet: TR max sumeet: 105.6 cm/sec 82.8 cm/sec 287.6 cm/sec PA max P.5 mmHg TR max P.1 mmHg Left Ventricle The left ventricle is grossly normal size. There is mild concentric left ventricular hypertrophy. Left ventricular systolic function is normal. The Ejection Fraction estimate is 55-60%. Doppler measurements suggest pseudonormalized left ventricular relaxation, which is associated with grade II/IV or mild to moderate diastolic dysfunction. Right Ventricle The right ventricle is normal in size and function. Atria The right atrium is normal. The left atrium is mildly dilated. The interatrial septum is intact with no evidence for an atrial septal defect. There is no Doppler evidence for an interatrial shunt. Mitral Valve The mitral valve is grossly normal. There is no mitral valve stenosis. There is a trace amount of mitral regurgitation. Aortic Valve The aortic valve is sclerotic, but shows no functional abnormality. The aortic valve opens well. A bicuspid aortic valve cannot be excluded. There is no aortic valve stenosis. No aortic regurgitation is present. Tricuspid Valve The tricuspid valve is normal in structure and function. There is a trace amount of tricuspid regurgitation. Right ventricular systolic pressure is estimated to be elevated at 30-40mmHg. There is mild pulmonary hypertension by echo. Pulmonic Valve The pulmonic valve is not well seen, but is grossly normal. There is a mild amount of pulmonic regurgitation. Great Vessels The aortic root is normal size. The inferior vena cava appeared normal and decreased > 50% with respiration (RAP 5-10 mmHg). Effusions There is no pericardial effusion. : STEPHON SANCHEZ Anil
== END ==
LOC: SP 09:33
PROVIDERS: ATTEND Physician Assistant
DX: R01.1 Cardiac murmur, unspecified (principal)
CPT/HCPCS: 93306